=== PATIENT | female | born 1955 | race Caucasian/White ===

== ENCOUNTER 2018-08-14 10:40 | Emergency (ER) | payer OTHER ==
[2018-08-14] MEDS ORDERED: IPRATROPIUM-ALBUTEROL 3 ML NEB INHALATION STA (11:18)
[2018-08-14] MEDS ORDERED: methylPREDNISolone SOD SUCCI 125 MG/2 ML VIAL IM ONE (11:19)
--- NOTE | 2018-08-14 11:25 | ED ---
URI HPI - General Chief Complaint: Upper Respiratory Infection Stated Complaint: Cough & hip pain Time Seen by Provider: 08/14/18 10:53 Source: patient, RN notes reviewed, old records reviewed Mode of arrival: ambulatory Limitations: no limitations - History of Present Illness Initial Comments: 63-year-old female presents emergency Department chief complaint of cough for the past 4 days. She is a smoker. She reports she's been decreasing her cigarette use over the past 3 days. Patient complains of productive cough. She 'll stay she's been having increased left hip pain. Patient denies any recent fever or chills. She has no history of sick contacts. She does feel slightly nauseated did have one episode of vomiting due to coughing. She has no recent antibiotic use. - Related Data Home Medications Medication Instructions Recorded Confirmed Aspirin EC [Ecotrin Low Dose] 81 mg PO DAILY 08/14/18 08/14/18 Lisinopril [Zestril] 10 mg PO DAILY 08/14/18 08/14/18 diphenhydrAMINE [Benadryl] 25 mg PO HS PRN 08/14/18 08/14/18 Previous Rx's Medication Instructions Recorded Albuterol Inhaler [Ventolin Hfa 1 - 2 puff INHALATION RT-Q6H PRN 08/14/18 Inhaler] #1 inhaler Azithromycin [Zithromax Z-pack] 250 mg PO DIRECTED #6 tab 08/14/18 Promethazine/Dextromethorphan 5 ml PO TID #120 ml 08/14/18 [Phenergan DM Syrup] predniSONE 50 mg PO DAILY #5 tablet 08/14/18 Allergies Allergy/AdvReac Type Severity Reaction Status Date / Time No Known Allergies Allergy Verified 08/14/18 11:08 Review of Systems ROS Statement: Those systems with pertinent positive or pertinent negative responses have been documented in the HPI. ROS Other: All systems not noted in ROS Statement are negative. Past Medical History Past Medical History: Hypertension History of Any Multi-Drug Resistant Organisms: None Reported Additional Past Surgical History / Comment(s): neck surgery, bladder suspension Past Psychological History: No Psychological Hx Reported Smoking Status: Current every day smoker Past Alcohol Use History: None Reported Past Drug Use History: None Reported General Exam - General Exam Comments Initial Comments: 63-year-old female. Alert and oriented. No significant distress. Limitations: no limitations General appearance: alert, in no apparent distress Head exam: Present: atraumatic, normocephalic, normal inspection Eye exam: Present: normal appearance, PERRL, EOMI. Absent: scleral icterus, conjunctival injection, periorbital swelling ENT exam: Present: normal exam, mucous membranes moist Neck exam: Present: normal inspection. Absent: tenderness, meningismus, lymphadenopathy Respiratory exam: Present: wheezes, rales, rhonchi. Absent: normal lung sounds bilaterally, respiratory distress, stridor Cardiovascular Exam: Present: regular rate, normal rhythm, normal heart sounds. Absent: systolic murmur, diastolic murmur, rubs, gallop, clicks GI/Abdominal exam: Present: soft, normal bowel sounds. Absent: distended, tenderness, guarding, rebound, rigid Extremities exam: Present: normal inspection, full ROM, normal capillary refill. Absent: tenderness, pedal edema, joint swelling, calf tenderness Back exam: Present: normal inspection Neurological exam: Present: alert, oriented X3, CN II-XII intact Psychiatric exam: Present: normal affect, normal mood Skin exam: Present: warm, dry, intact, normal color. Absent: rash Course Vital Signs 08/14/18 08/14/18 08/14/18 10:43 11:50 12:06 Temperature 97.8 F Pulse Rate 80 76 78 Respiratory 20 Rate Blood Pressure 121/60 O2 Sat by Pulse 99 Oximetry Medical Decision Making - Medical Decision Making 63-year-old female presents emergency department today with chief complaint of cough congestion for the past 4 days Patient also complains of left hip pain worse over the past few days. Patient is a smoker. We had a extensive conversation about smoking sensation over 5 minutes. X-ray of her hip shows evidence of osteoarthritis. No evidence of any acute changes. She did have significant wheezing and rhonchi on initial exam. She is given a double DuoNeb treatment and IM Solu-Medrol. Patient does have clearing of her wheezing. Chest x-ray does show evidence of the early pneumonia or atelectasis in the left lung base. Patient in the same will be treated for CAP with IM Rocephin and azithromycin. We'll discharge the Patient with steroids, albuterol inhaler and cough syrup. Patient understands treatment plan will comply. Return parameters were discussed. - Radiology Data Radiology results: report reviewed Mild bilateral hip osteoarthritis. No acute fracture identified. New focal left basilar opacity that could represent atelectasis or developing pneumonia. Follow-up can be performed. Disposition Clinical Impression: Pneumonia Disposition: HOME SELF-CARE Condition: Good Instructions: Bacterial Pneumonia (ED) Additional Instructions: Patient is advised to follow-up with primary care physician. Return to emergency department if any alarming signs symptoms occur including worsening shortness of breath or not feeling any better within the next 48 hours. Patient should take the cough syrup and use of albuterol inhaler as needed. Make sure that you continue to quit smoking. Prescriptions: Albuterol Inhaler [Ventolin Hfa Inhaler] 1 - 2 puff INHALATION RT-Q6H PRN #1 inhaler PRN Reason: Shortness Of Breath Azithromycin [Zithromax Z-pack] 250 mg PO DIRECTED #6 tab predniSONE 50 mg PO DAILY #5 tablet Promethazine/Dextromethorphan [Phenergan DM Syrup] 5 ml PO TID #120 ml Is patient prescribed a controlled substance at d/c from ED?: No Referrals: None,Stated [Primary Care Provider] - 1-2 days Adriana Mitchell MD [STAFF PHYSICIAN] - 1-2 days Rafael Esquivel MD [REFERRING] - 1-2 days Time of Disposition: 12:50
--- NOTE | 2018-08-14 12:07 | XR ---
EXAMINATION TYPE: XR chest 2V DATE OF EXAM: 08/14/2018 COMPARISON: 03/22/2013 HISTORY: 63-year-old female with pain and productive cough TECHNIQUE: Frontal and lateral views FINDINGS: Heart normal size. Aorta within normal limits. Mild diffuse interstitial prominence. There is focal p atchy left basilar opacity, new from prior. No pleural effusion. IMPRESSION: New focal left basilar opacity that could represent atelectasis or developing pneumonia. Follow-up ca n be performed.
--- NOTE | 2018-08-14 12:19 | XR ---
EXAMINATION TYPE: AP view pelvis and 2 views left hip DATE OF EXAM: 08/14/2018 COMPARISON: NONE HISTORY: 63 year-old female left hip pain for months FINDINGS: Mild degenerative spurring of both hips. Surgical material near the pubic bones. No acute fracture, s ubluxation, or dislocation. Osseous excrescence along the anterior femoral head neck junction on the left. IMPRESSION: Mild bilateral hip osteoarthrosis. No acute osseous abnormality seen.
[2018-08-14] MEDS ORDERED: AZITHROMYCIN 500 MG TAB PO STA (12:47)
[2018-08-14] MEDS ORDERED: cefTRIAXone 1,000 MG VIAL (IM USE) IM STA (12:47)
[2018-08-14 13:04] VITALS: BP 126/60; PULSE 88; RESP 18; TEMP 97.1
== END 2018-08-14 13:20 | disposition home or self-care (01) ==
LOC: EC 10:40
DX: J18.9 Pneumonia, unspecified organism (principal); M25.552 Pain in left hip; I10 Essential (primary) hypertension; F17.210 Nicotine dependence, cigarettes, uncomplicated; Z98.890 Other specified postprocedural states; Z79.82 Long term (current) use of aspirin; Z79.899 Other long term (current) drug therapy
CPT/HCPCS: 94640; 73502; 71046; 99284; 96372 ×2; 99406; J2930; J0696

== ENCOUNTER → 2020-05-10 | Outpatient (CLI) | payer MEDICARE, BC ==
[2020-05-10 17:58] LABS: African American GFR (CKD) 111.6 (60.0-200.0); Albumin 4.7 g/dL (3.80-4.90); Albumin/Globulin Ratio 2.24 (1.60-3.17); BUN/Creat Ratio 23.33 Ratio (12.00-20.00); Calcium 9.8 mg/dL (8.7-10.3); Chol/HDL Ratio 3.74; Globulin 2.1 g/dL (1.6-3.3); LDL Cholesterol,Calculated 122.8 mg/dL (0.0-131.0); Non-African American GFR(CKD) 96.3 (60.0-200.0); Potassium 4.8 mmol/L (3.5-5.5); Total Bilirubin 0.4 mg/dL (0.3-1.2); Total Protein 6.8 g/dL (6.2-8.2); VLDL Calculation 25.2 mg/dL (5.00-40.00)
== END | disposition home or self-care (01) ==
LOC: LABWHC1 10:40
PROVIDERS: ATTEND Internal Medicine Interventional Cardiology
DX: E78.2 Mixed hyperlipidemia (principal)
CPT/HCPCS: 36415; 80053; 80061

== ENCOUNTER → 2020-08-10 | Outpatient (CLI) | payer MEDICARE, BC ==
[2020-08-10 11:23] LABS: HCT 40.6 % (34.0-46.0); MCH 31.4 pg (25.0-35.0); MCHC 32.1 g/dL (31.0-37.0); MCV 97.8 fL (80.0-100.0); Mean Platelet Volume 7.7; Platelet Count 325 k/uL (150-450); RBC 4.15 m/uL (3.80-5.40); RDW 11.9 % (11.5-15.5); WBC 6.6 k/uL (3.8-10.6)
[2020-08-10 19:25] LABS: ALT 37 U/L (8-44); AST 24 U/L (13-35); African American GFR (CKD) 117.7 (60.0-200.0); Albumin/Globulin Ratio 2.47 (1.60-3.17); Alkaline Phosphatase 93 U/L (41-126); C Reactive Protein <0.4 mg/dL (0.0-0.8); Calcium 9.9 mg/dL (8.7-10.3); Carbon Dioxide 27.3 mmol/L (21.6-31.8); Chloride 108 mmol/L (96-109); Globulin 1.9 g/dL (1.6-3.3); Glucose 90 mg/dL (70-110); Non-African American GFR(CKD) 101.6 (60.0-200.0); Potassium 4.8 mmol/L (3.5-5.5); Sodium 143 mmol/L (135-145); Total Bilirubin 0.5 mg/dL (0.3-1.2); Total Protein 6.6 g/dL (6.2-8.2)
== END | disposition home or self-care (01) ==
LOC: LABWHC1 10:02
PROVIDERS: ATTEND Colon & Rectal Surgery
DX: R19.7 Diarrhea, unspecified (principal)
CPT/HCPCS: 36415; 80053; 83630; 85027; 86140

== ENCOUNTER 2022-05-16 14:21 | Emergency (ER) | payer MEDICARE, BC ==
[2022-05-16 14:30] VITALS: BP 149/67; PULSE 63; RESP 16; TEMP 98
[2022-05-16] MEDS ORDERED: KETOROLAC 15 MG/ML 1 ML VIAL IM STA (15:49)
--- NOTE | 2022-05-16 15:49 | ED ---
Extremity Problem HPI - General Chief complaint: Extremity Problem,Nontraumatic Stated complaint: Lt arm numbness Time Seen by Provider: 05/16/22 15:37 Source: patient Mode of arrival: ambulatory Limitations: no limitations - History of Present Illness Initial comments: Patient is a pleasant 67-year-old female presents the emergency room with complaints of numbness and tingling like sensation from her mid left upper extremity to her wrist region. She initially was concerned regarding the symptom being in her left arm with possible heart correlation however she has a known history of cervical disc disease with previous cervical fusion with radiculopathy in the same reason region previously. She denies any atypical chest pain like symptoms or typical chest pain symptoms. She denies any shortness of breath palpitations or diaphoresis. She denies any joint swelling, range of motion impairment, weakness, trauma to the affected joint or her neck. She has a past medical hisotry of hypertension which she reports has been well controlled. She monitors her heart rate on her fitbit and denies any episodes of tachycardia as well. She denies any other complaints or concerns at this time. - Related Data Home Medications Medication Instructions Recorded Confirmed Aspirin EC [Ecotrin Low Dose] 81 mg PO HS 08/14/18 05/16/22 lisinopriL [Zestril] 20 mg PO HS 08/14/18 05/16/22 Cholecalciferol [Vitamin D3 (25 25 mcg PO HS 05/16/22 05/16/22 Mcg = 1000 Iu)] Ezetimibe [Zetia] 10 mg PO HS 05/16/22 05/16/22 L.acidoph,Paracasei, B.lactis 1 cap PO HS 05/16/22 05/16/22 [Probiotic] [place]-3/Dha/Epa/Fish Oil [Fish Oil 1 cap PO HS 05/16/22 05/16/22 1,000 mg Softgel] Omeprazole 20 mg PO HS 05/16/22 05/16/22 Allergies Allergy/AdvReac Type Severity Reaction Status Date / Time No Known Allergies Allergy Verified 05/16/22 16:24 Review of Systems ROS Statement: Those systems with pertinent positive or pertinent negative responses have been documented in the HPI. ROS Other: All systems not noted in ROS Statement are negative. Past Medical History Past Medical History: Hypertension History of Any Multi-Drug Resistant Organisms: None Reported Additional Past Surgical History / Comment(s): neck surgery, bladder suspension Past Psychological History: No Psychological Hx Reported Smoking Status: Former smoker Past Alcohol Use History: None Reported Past Drug Use History: None Reported General Exam Limitations: no limitations General appearance: alert, in no apparent distress Head exam: Present: atraumatic, normocephalic, normal inspection Eye exam: Present: normal appearance, PERRL, EOMI. Absent: scleral icterus, conjunctival injection, periorbital swelling ENT exam: Present: normal exam, mucous membranes moist Neck exam: Present: normal inspection, full ROM. Absent: tenderness, meningismus, lymphadenopathy Respiratory exam: Present: normal lung sounds bilaterally. Absent: respiratory distress, wheezes, rales, rhonchi, stridor Cardiovascular Exam: Present: regular rate, normal rhythm, normal heart sounds. Absent: systolic murmur, diastolic murmur, rubs, gallop, clicks GI/Abdominal exam: Present: soft, normal bowel sounds. Absent: distended, tenderness, guarding, rebound, rigid Extremities exam: Present: normal inspection, full ROM, normal capillary refill. Absent: tenderness, pedal edema, joint swelling, calf tenderness Left Shoulder Exam: Present: normal inspection, full ROM. Absent: tenderness Upper Arm exam: Present: normal inspection, full ROM. Absent: swelling, ecchymosis Elbow exam: Present: normal inspection, full ROM. Absent: tenderness, swelling, deformity, erythema, effusion Forearm Wrist exam: Present: normal inspection, full ROM. Absent: tenderness, swelling, erythema Back exam: Present: normal inspection Neurological exam: Present: alert, oriented X3, CN II-XII intact Psychiatric exam: Present: normal affect, normal mood Skin exam: Present: warm, dry, intact, normal color. Absent: rash Course Vital Signs 05/16/22 14:27 Temperature 98 F Pulse Rate 63 Respiratory 16 Rate Blood Pressure 149/67 O2 Sat by Pulse 98 Oximetry Medical Decision Making - Medical Decision Making Symptoms being experienced discussed at length. X-ray of elbow and shoulder o ffered and declined. Will check x-ray of cervical spine and give dose of Toradol to monitor response. No indication for laboratory studies at this time. X-ray negative for acute findings. Symptom improvement improved with Toradol. Will discharge home with follow-up with her primary care for provider for possible further workup if symptoms persist. Encouraged to utilize ibuprofen as needed help reduce cervical inflammation. Case discussed with Dr. Quinn - Radiology Data Radiology results: report reviewed, image reviewed X-ray of the cervical spine complete shows degenerative changes of the cervical spine and recommends further MRI for assessment if clinically required. Disposition Clinical Impression: Radiculopathy due to disorder of intervertebral disc Disposition: HOME SELF-CARE Condition: Good Instructions (If sedation given, give patient instructions): Cervical Radiculopathy (ED) Additional Instructions: Utilize ibuprofen as needed to help reduce cervical inflammation to control radiculopathy symptoms. Follow-up with your primary care provider for possible further imaging including MRI. Please return to the Emergency Department if symptoms worsen or any other concerns. Is patient prescribed a controlled substance at d/c from ED?: No Referrals: Rafael Esquivel MD [Primary Care Provider] - 1-2 days Time of Disposition: 17:21
--- NOTE | 2022-05-16 17:10 | XR ---
EXAMINATION TYPE: XR cervical spine comp DATE OF EXAM: 05/16/2022 COMPARISON: NONE INDICATION: Left upper extremity radiculopathy TECHNIQUE: 6 views of the cervical spine FINDINGS: Fused C5 and C6 vertebral bodies. Minimal anterolisthesis of C4 over C5. No definite vertebral body c ollapse or acute displaced fracture. Degenerative changes of the cervical spine with multilevel oppos ing endplate osteophytosis. Degenerated C6-7 disc. Multilevel uncovertebral and facet osteoarthropathy. Suspected mild anterolist hesis of C7 over T1. Unremarkable prevertebral soft tissue. Bilateral C6-7 neural foramina stenosis. Grossly unremarkable atlantoaxial articulations. IMPRESSION: Degenerative changes of cervical spine as described above. Further MRI assessment can be considered i f clinically required.
== END 2022-05-16 17:30 | disposition home or self-care (01) ==
LOC: EC 14:21
DX: M54.10 Radiculopathy, site unspecified (principal); I10 Essential (primary) hypertension; Z87.891 Personal history of nicotine dependence; Z79.82 Long term (current) use of aspirin; Z79.899 Other long term (current) drug therapy
CPT/HCPCS: 72050; 99283; 96372; J1885

== ENCOUNTER → 2023-11-13 | Outpatient (CLI) | payer MEDICARE, BC ==
--- NOTE | 2023-11-14 10:45 | MR ---
EXAMINATION TYPE: MR shoulder LT wo con DATE OF EXAM: 11/13/2023 COMPARISON: None HISTORY: Lt shoulder pain due to injury TECHNIQUE: Multiplanar, multisequence imaging of the left shoulder is performed without contrast. FINDINGS: SUPRASPINATUS: Complete full-thickness tear of the supraspinatus, measures 2.9 cm in AP dimension and 3.5 cm in mediolateral dimension. INFRASPINATUS: Intact, but increased signal and thickness, relating to tendinosis. SUBSCAPULARIS: Complete full-thickness retracted tear of the subscapularis, retracted medially 1.2 cm . TERES MINOR: Intact. BICEPS: The biceps tendon is intact, but increased in signal, relating to tendinosis. The tendon is m edially subluxed secondary to the subscapularis tear and is positioned along the anterior aspect of t he glenoid. GLENOHUMERAL JOINT: Partial-thickness thinning of the glenoid and humeral articular cartilage. Small joint effusion. ACROMIOCLAVICULAR JOINT: Mild capsular hypertrophy and undersurface osteophytic spurring. No joint ef fusion. LABRUM: Medially displaced tear of the anterior labrum, scarred to the anterior glenoid, likely chron ic. SUBDELTOID BURSA: Small amount of fluid within the subdeltoid bursa. MUSCLES: Fatty atrophy of the supraspinatus and subscapularis. BONE MARROW: Normal. OTHER: No additional significant abnormality is appreciated. IMPRESSION: 1. Complete full-thickness tear of the supraspinatus and subscapularis tendons. 2. Infraspinatus tendinosis. 3. Long head biceps tendinosis and medial subluxation 4. Medially displaced anterior labral tear, likely chronic. 5. Glenohumeral and acromioclavicular osteoarthrosis.
== END | disposition home or self-care (01) ==
LOC: RADMRIMAIN 10:27
PROVIDERS: ATTEND Orthopaedic Surgery
DX: M19.012 Primary osteoarthritis, left shoulder (principal); M67.814 Other specified disorders of tendon, left shoulder; M75.122 Complete rotator cuff tear or rupture of left shoulder, not specified as traumatic; M24.812 Other specific joint derangements of left shoulder, not elsewhere classified

== ENCOUNTER → 2023-12-27 | Outpatient (CLI) | payer MEDICARE, BC ==
[2023-12-27 15:17] LABS: HCT 40.9 % (37.2-46.3); HGB 13.5 g/dL (12.0-15.0); MCH 31.8 pg (27.0-32.0); MCV 96.2 FL (80.0-97.0); NRBC Per 100 WBC 0 X 10*3/uL (0.00-0.01); Platelet Count 309 X 10*3/uL (140-440); RBC 4.25 X 10*6/uL (4.10-5.20); WBC 5.59 X 10*3/uL (4.50-10.00)
[2023-12-27 15:29] LABS: Blood Urea Nitrogen 15.6 mg/dL (9.0-27.0); Chloride 105 mmol/L (96-109); Potassium 4.5 mmol/L (3.5-5.5); Sodium 142 mmol/L (135-145)
== END | disposition home or self-care (01) ==
LOC: LABPAT 11:16
PROVIDERS: ATTEND Internal Medicine Interventional Cardiology
DX: Z01.812 Encounter for preprocedural laboratory examination (principal); R94.39 Abnormal result of other cardiovascular function study
CPT/HCPCS: 36415; 80051; 82565; 84520; 85027

== ENCOUNTER 2024-01-03 06:17 | Day surgery (SDC) | payer MEDICARE, BC ==
[~2024-01-03 06:17] MED LIST: ALPRAZolam 0.25 MG TAB PO PRN; ALPRAZolam 0.5 MG TAB PO PRN; HEPARIN SODIUM,PORCINE (1 ML) 2,500 UNIT in SODIUM CHLORIDE 0.9% 250 ML IRRIGATION PRN; HEPARIN SODIUM,PORCINE 10,000 UNIT in SODIUM CHLORIDE 0.9% 1,000 ML IRRIGATION PRN; NITROGLYCERIN SL TABS 0.4 MG TAB SUBLINGUAL PRN
[2024-01-03] MEDS: SODIUM CHLORIDE 0.9% 1,000 ML in EMPTY BAG 1 BAG IV SCH (06:57)
[2024-01-03] MEDS ORDERED: ASPIRIN 325 MG TAB PO ONE (07:00)
[2024-01-03 07:09] VITALS: RESP 18; TEMP 97.7
[2024-01-03] MEDS ORDERED: LIDOCAINE 1% INJ 10MG/ML (20 ML MDV) ONE (07:09)
[2024-01-03] MEDS ORDERED: VERAPAMIL 2.5 MG/ML 2 ML AMP ONE (07:09)
[2024-01-03] MEDS ORDERED: fentaNYL (PF) 50 MCG/ML 2 ML AMP ONE (07:23)
[2024-01-03] MEDS: fentaNYL (PF) 50 MCG/ML 2 ML AMP IVP ONE (07:25)
[2024-01-03] MEDS ORDERED: HEPARIN SODIUM 1,000 UN/ML (10ML VL) ONE (07:27)
[2024-01-03] MEDS: MIDAZOLAM 2 MG/2 ML VIAL IVP ONE (07:28)
[2024-01-03] MEDS: LIDOCAINE 1% INJ 10MG/ML (20 ML MDV) SQ ONE (07:29)
[2024-01-03] MEDS: VERAPAMIL SYRINGE (5 MG/10 ML) INTRAARTER ONE (07:32)
[2024-01-03] MEDS: NITROGLYCERIN 1000MCG/10ML SYRINGE INTRACORON ONE (07:51)
[2024-01-03] MEDS: IOPAMIDOL-370 100ML BTL INJ ONE (07:54)
[2024-01-03] MEDS ORDERED: RX INFO: IV CONTRAST WAS GIVEN 1 EACH MISC MISCELLANE PRN (08:14)
[2024-01-03] MEDS ORDERED: SODIUM CHLORIDE 0.9% 1,000 ML IV SCH (08:15)
--- NOTE | 2024-01-03 08:21 | P.CARDCATH ---
Date of Procedure: 01/03/24 Description of Procedure: Cardiac Catheterization: The patient is a 68-year-old female with a known history of hypertension, hyperlipidemia who has been complaining of dyspnea on exertion and had an abnormal MPI. Recommendations were made regarding cardiac catheterization, the risks and the complications were discussed with the patient who is in full understanding and agreement. Procedure Description: Patient was brought to mechanical laboratory technician in fasting semi-sedated state after receiving Fentanyl and Benadryl achieiving moderate conscious sedated state. Using Xylocaine Anesthesia and modified Seldinger technique, a 6-[place] sheath was introduced in the right radial artery . Subsequently, selective coronary angiography was performed using a 5-[place] 3.5 bend Tanja catheter. Multiple views of the coronary artery including hemiaxial views were obtained. The right Tanja catheter was used to cross the aortic valve and LVEDP was calculated. After removing the catheters a 6 [place] FR 4 guiding catheter was introduced and after cannulating the right coronary ostium a pressure wire X was introduced in the RCA and IFR was measured at 0.91 -0.93. Following that, catheter and sheath were removed. Hemostasis was obtained with deployment of vascular band . There was no immediate complication. Patient was returned to room in stable condition. Of note, the patient received a total of 5000 units of intravenous heparin as well as intra-arterial verapamil. Findings: Left main: This is a large size vessel, bifurcating into LAD and left circumflex, left main has no obstructive disease LAD: This is a large size vessel, reaching to the apex, giving rise to a moderately sized diagonal branch in the midsegment. The mid LAD has a 20 to 30% plaque and there is another plaque of 20 to 30% after the takeoff of the diagonal branch, the rest of the vessel has no high-grade stenosis Left circumflex: This is a large nondominant vessel giving rise to 3 obtuse marginal branch. The left circumflex has mild intimal disease in the OM 2 and 3 of 20 to 30% without any high-grade stenosis RCA: This is a dominant vessel, bifurcating into PDA and PLV. The mid right coronary artery has an eccentric lesion of about 50%, there is another 30% plaque in the mid distal segment. The rest of the vessel has no high-grade stenosis Left Ventriculogram: Not performed Hemodynamics: There was no gradient across the aortic valve, LVEDP was 10-15 mmHg Conclusion: 1. Mild disease in the LAD and left circumflex 2. Moderate disease in the mid right coronary artery, nonhemodynamically significant by IFR 3. Right dominance 4. Normal LVEDP Recommendations: I would recommend to continue medical therapy with aggressive coronary risks modifications, attempting to maintain LDL below 70 mg/dL. The findings and the recommendations were discussed with the patient and the family and they were in full understanding and agreement. Duration of sedation is 27 minutes.
[2024-01-03 13:33] VITALS: BP 114/52; PULSE 56
[2024-01-03] MEDS ORDERED: NON FORMULARY DRUG (Aspirin Ec 81 MG Tablet.Dr) PO SCH (21:00)
[2024-01-03] MEDS ORDERED: lisinopriL 10 MG TAB PO SCH (21:00)
[2024-01-03] MEDS ORDERED: FAMOTIDINE 20 MG TAB PO SCH (21:00)
[2024-01-03] MEDS ORDERED: EZETIMIBE 10 MG TAB PO SCH (21:00)
[2024-01-06] MEDS ORDERED: NON FORMULARY DRUG (Rosuvastatin Calcium [Rosuvastatin Calcium] 5 MG Tablet) PO SCH (08:15)
== END 2024-01-03 12:30 | disposition home or self-care (01) ==
LOC: CATHCVL 06:17
PROVIDERS: ATTEND Internal Medicine Interventional Cardiology
DX: I25.10 Atherosclerotic heart disease of native coronary artery without angina pectoris (principal); I10 Essential (primary) hypertension; E78.5 Hyperlipidemia, unspecified; F17.210 Nicotine dependence, cigarettes, uncomplicated; Z79.82 Long term (current) use of aspirin; Z79.899 Other long term (current) drug therapy
CPT/HCPCS: 93458; 93799; C1887 ×2; C1769 ×3; C1894; J2250; J2001; J3010; J1644; Q9967; J2305